=== PATIENT | female | born 1970 | race Caucasian/White ===

== ENCOUNTER 2019-04-26 07:44 | Day surgery (SDC) | payer MEDICAID, OTHER ==
[2019-04-25 11:10] LABS: BLOOD UREA NITROGEN,BUN 14 mg/dL (7.0-18.0); CARBON DIOXIDE,CO2 24.8 mmol/L (21.0-32.0); CHLORIDE,CL 106 mmol/L (98-107); GLUCOSE RANDOM 100 mg/dL (74-106); POTASSIUM,K 4.5 mmol/L (3.5-5.1); SODIUM,NA 141 mmol/L (136-145)
[~2019-04-26 07:44] MED LIST: Ketorolac 30 MG/ML SDV ONE; Lidocaine 2% 5 ML SDV ONE; Midazolam 1 MG/ML 2 ML SDV ONE; Ondansetron 4 MG/2 ML SDV ONE; Propofol 200 MG/20 ML SDV ONE; Rocuronium 100 MG/10 ML Syringe ONE; Sodium Chloride 0.9% 10 ML SDV IV PRN; Sodium Chloride 0.9% 10 ML Syringe FLUSH PRN; Sodium Chloride 0.9% 2.5 ML Syringe FLUSH PRN; ceFAZolin 2 GM in Premix Bag 1 BAG IV ONE; diphenhydrAMINE 50 MG/ML SDV ONE; fentaNYL 250 MCG/5 ML SDV ONE
[2019-04-26] MEDS ORDERED: Fluorescein 5 ML Vial ONE (07:58)
[2019-04-26] MEDS: Lactated Ringers 1,000 ML IV SCH ×3 (08:00→20:30)
[2019-04-26] MEDS ORDERED: Scopolamine 1.5 MG Transdermal Patch TRDERM PRN (08:24)
--- NOTE | 2019-04-26 08:24 | PCM.PREANE ---
Preanesthetic Assessment - Anesthesia/Transfusion/Family Hx Anesthesia History: Prior Anesthesia Without Reaction Family History of Anesthesia Reaction: No Transfusion History: No Prior Transfusion(s) - Review of Systems General: No Symptoms Pulmonary: No Symptoms Cardiovascular: No Symptoms Gastrointestinal: No Symptoms Neurological: Difficulty Walking (post crani for aneurysm) Other: Reports: Depression, Anxiety - Physical Assessment NPO Status Date: 04/26/19 NPO Status Time: 06:00 Vital Signs: Last Vital Signs Temp 96.4 F 04/26/19 07:58 Pulse 86 04/26/19 07:58 Resp 20 04/26/19 07:58 BP 115/77 04/26/19 07:58 Pulse Ox 97 04/26/19 07:58 Height: 5 ft 7 in Weight: 81.647 kg ASA Class: 3 Mental Status: Alert & Oriented x3 Airway Class: Mallampati = 2 Dentition: Reports: Normal Dentition, Missing Tooth/Teeth ROM/Head Extension: Full Lungs: Clear to Auscultation, Normal Respiratory Effort Cardiovascular: Regular Rate, Regular Rhythm - Lab Values: Laboratory Last Values WBC 5.19 K/uL (4.0-11.0) 04/25/19 10:18 RBC 5.03 M/uL (4.30-5.90) 04/25/19 10:18 Hgb 9.6 g/dL (12.0-16.0) L 04/25/19 10:18 Hct 34.2 % (36.0-46.0) L 04/25/19 10:18 MCV 68.0 fL (80.0-98.0) L 04/25/19 10:18 MCH 19.1 pg (27.0-32.0) L 04/25/19 10:18 MCHC 28.1 g/dL (31.0-37.0) L 04/25/19 10:18 RDW Std Deviation 54.9 fl (28.0-62.0) 04/25/19 10:18 RDW Coeff of West 22 % (11.0-15.0) H 04/25/19 10:18 Plt Count 420 K/uL (150-400) H 04/25/19 10:18 MPV 8.70 fL (7.40-12.00) 04/25/19 10:18 Nucleated RBC % 0.0 /100WBC 04/25/19 10:18 Nucleated RBCs # 0 K/uL 04/25/19 10:18 Sodium 141 mmol/L (136-145) 04/25/19 10:18 Potassium 4.5 mmol/L (3.5-5.1) 04/25/19 10:18 Chloride 106 mmol/L (98-107) 04/25/19 10:18 Carbon Dioxide 24.8 mmol/L (21.0-32.0) 04/25/19 10:18 BUN 14 mg/dL (7.0-18.0) 04/25/19 10:18 Creatinine 0.6 mg/dL (0.6-1.0) 04/25/19 10:18 Est Cr Clr Drug Dosing 109.08 mL/min 04/25/19 10:18 Estimated GFR (MDRD) > 60.0 ml/min 04/25/19 10:18 Glucose 100 mg/dL (74-106) 04/25/19 10:18 Calcium 8.8 mg/dL (8.5-10.1) 04/25/19 10:18 HCG, Qual NEGATIVE (NEG) 04/25/19 10:18 Blood Type A POSITIVE 04/25/19 10:18 Antibody Screen NEGATIVE 04/25/19 10:18 - Allergies Allergies/Adverse Reactions: Allergies Allergy/AdvReac Type Severity Reaction Status Date / Time codeine Allergy Nausea and Verified 04/24/19 09:08 Vomiting doxycycline Allergy Nausea and Verified 04/24/19 09:08 Vomiting peanut Allergy Anaphylactic Verified 04/24/19 09:08 Shock - Blood Blood Available: No - Anesthesia Plan Pre-Op Medication Ordered: Other (scop) - Acknowledgements Anesthesia Type Planned: General Anesthesia Pt an Appropriate Candidate for the Planned Anesthesia: Yes Alternatives and Risks of Anesthesia Discussed w Pt/Guardian: Yes Pt/Guardian Understands and Agrees with Anesthesia Plan: Yes PreAnesthesia Questionnaire HEENT History: Reports: None Cardiovascular History: Reports: None Respiratory History: Reports: None Gastrointestinal History: Reports: Other (See Below) Other Gastrointestinal History: hx gastric ulcers Genitourinary History: Reports: None TRAPPER ANIMAL History: Reports: Dysfunctional Uterine Bleeding, Musculoskeletal History: Reports: Fracture Other Musculoskeletal History: hx fx hand and neck Neurological History: Reports: Cerebral Aneurysms, Concussion, CVA, Migraines Other Neuro History: 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 Psychiatric History: Reports: Anxiety, Depression, PTSD Endocrine/Metabolic History: Reports: Hypothyroidism Hematologic History: Reports: Anemia Immunologic History: Reports: None Oncologic (Cancer) History: Reports: None Dermatologic History: Reports: None - Infectious Disease History Infectious Disease History: Reports: None - Past Surgical History Head Surgeries/Procedures: Reports: Craniotomy HEENT Surgical History: Reports: Oral Surgery Cardiovascular Surgical History: Reports: None Respiratory Surgical History: Reports: None GI Surgical History: Reports: None Female Surgical History: Reports: D&C, Tubal Ligation Other Female Surgeries/Procedures: hx hysteroscopy with D&C Endocrine Surgical History: Reports: None Neurological Surgical History: Reports: Other (See Below) Other Neurological Surgeries/Procedures: Craniotomy procedure in May,. Musculoskeletal Surgical History: Reports: None Oncologic Surgical History: Reports: None Dermatological Surgical History: Reports: None - SUBSTANCE USE Smoking Status *Q: Current Every Day Smoker Tobacco Use Within Last Twelve Months: Cigarettes Recreational Drug Use History: Yes Recreational Drug Type: Reports: Marijuana/Hashish - HOME MEDS Home Medications: Home Meds levETIRAcetam [Keppra] 750 mg PO BID 06/04/18 [History] Butalbit/Acetamin/Caff/Codeine [Moloxg-Rscxrfefhyq-Tmkn-Codein] 1 tab PO ASDIRECTED PRN 04/24/19 [History] Cyanocobalamin (Vitamin B12) [Vitamin B12] 1,000 mcg PO DAILY 04/24/19 [History] Levothyroxine [Synthroid] 100 mcg PO DAILY 04/24/19 [History] - CURRENT (IN HOUSE) MEDS Current Meds: Current Medications Lactated Ringer's (Ringers, Lactated) 1,000 mls @ 125 mls/hr IV ASDIRECTED [facility] Last Admin: 04/26/19 08:00 Dose: 125 mls/hr Sodium Chloride (Saline Flush) 10 ml FLUSH ASDIRECTED PRN PRN Reason: Keep Vein Open Sodium Chloride (Saline Flush) 2.5 ml FLUSH ASDIRECTED PRN PRN Reason: Keep Vein Open Sodium Chloride (Normal Saline) 10 ml IV ASDIRECTED PRN PRN Reason: IV Use Discontinued Medications Diphenhydramine HCl (Benadryl) Confirm Administered Dose 50 mg .ROUTE .STK-MED ONE Stop: 04/26/19 07:14 Fentanyl (Sublimaze) Confirm Administered Dose 250 mcg .ROUTE .STK-MED ONE Stop: 04/26/19 07:14 Fluorescein Sodium (Ak-Fluor) Confirm Administered Dose 5 ml .ROUTE .STK-MED ONE Stop: 04/26/19 07:59 Cefazolin Sodium/Dextrose 2 gm (/ Premix) 50 mls @ 100 mls/hr IV ONETIME ONE Stop: 04/25/19 09:07 Ketorolac Tromethamine (Toradol) Confirm Administered Dose 30 mg .ROUTE .STK- MED ONE Stop: 04/26/19 07:14 Lidocaine (Xylocaine-Mpf 2%) Confirm Administered Dose 5 ml .ROUTE .STK-MED ONE Stop: 04/26/19 07:14 Midazolam HCl (Versed 1 Mg/Ml) Confirm Administered Dose 2 mg .ROUTE .STK-MED ONE Stop: 04/26/19 07:16 Ondansetron HCl (Zofran) Confirm Administered Dose 4 mg .ROUTE .STK-MED ONE Stop: 04/26/19 07:14 Propofol (Diprivan 20 Ml) Confirm Administered Dose 200 mg .ROUTE .STK-MED ONE Stop: 04/26/19 07:14 Rocuronium [place] (Zemuron) Confirm Administered Dose 100 mg .ROUTE .STK-MED ONE Stop: 04/26/19 07:14
[2019-04-26] MEDS ORDERED: Neostigmine Methylsulfate 1 MG/ML 5 ML Syringe ONE (10:04)
[2019-04-26] MEDS ORDERED: Glycopyrrolate 0.2 MG/ML SDV ONE (10:04)
[2019-04-26] MEDS ORDERED: HYDROmorphone 2 MG/ML Syringe ONE (10:21)
[2019-04-26] MEDS ORDERED: Phenylephrine/Normal Saline 100 MCG/ML 10 ML Syringe ONE (10:23)
[2019-04-26] MEDS ORDERED: fentaNYL 100 MCG/2 ML SDV IVPUSH PRN (10:37)
[2019-04-26] MEDS ORDERED: Octyl 2-Cyanoacrylate 1 Tube ONE (11:25)
[2019-04-26] MEDS ORDERED: Morphine 4 MG/ML Syringe IVPUSH PRN (11:27)
[2019-04-26] MEDS ORDERED: Acetaminophen/oxyCODONE 325-5 MG Tab PO PRN ×2 (11:27)
[2019-04-26] MEDS ORDERED: Promethazine 25 MG/ML SDV IM PRN (11:27)
[2019-04-26] MEDS ORDERED: Ketorolac 30 MG/ML SDV IVPUSH ONE (11:27)
[2019-04-26] MEDS ORDERED: Ondansetron 4 MG/2 ML SDV IVPUSH PRN (11:27)
--- NOTE | 2019-04-26 11:31 | PCM.OPNOTE ---
- General Post-Op/Procedure Note Date of Surgery/Procedure: 04/26/19 Operative Procedure(s): TLH,BSO and cysto Post-Op Diagnosis: Same Anesthesia Technique: General ET Tube Primary Surgeon: Nas Harper EBL in mLs: 100 Complications: None Condition: Good
[2019-04-26] MEDS ORDERED: Naloxone 0.4 MG/ML Syringe ONE (11:34)
--- NOTE | 2019-04-26 13:15 | OR ---
SURGEON: Nas Harper MD DATE OF PROCEDURE: PREOPERATIVE DIAGNOSES: Menometrorrhagia, anemia. POSTOPERATIVE DIAGNOSES: Menometrorrhagia, anemia. OPERATIONS PERFORMED: Total laparoscopic hysterectomy, laparoscopic bilateral salpingo-oophorectomy, cystoscopy, and examination under anesthesia. PRIMARY SURGEON: Nas Harper MD. LOADING MACHINE OPERATOR HELPER: Brigida Garcias. ANESTHESIA: General endotracheal intubation. ESTIMATED BLOOD LOSS: 100 mL. COMPLICATIONS: None. FINDINGS: Uterus is about 8-week size. Both ovaries are unremarkable. INDICATION FOR SURGERY: [place] referred to the admit note. DESCRIPTION OF PROCEDURE: After adequate level of anesthesia, the patient was placed in lithotomy position and examination under anesthesia was performed and it was deemed it was the better route to do the hysterectomy laparoscopically, so the patient prepped and draped in sterile fashion as usual. Raymond catheter placed in the bladder and the colpotomizer and manipulator were placed in the uterus for manipulation. The operation shifted abdominally. Stab wound done beneath the umbilicus. The Veress needle was placed in the peritoneal cavity and that cavity insufflated with 3.5 L of carbon dioxide, and utilizing the Visiport technique, the peritoneal cavity was entered with a 5 mm trocar infraumbilically. Once was that anchored and making sure we were in the appropriate space, then 5/10 trocar placed in the left iliac fossa and 5 mm trocar in the right iliac fossa. The operation was started by then identifying the landmark of the pelvis and the anatomy, and then using the Marc Harmonic scalpel, the superior pedicle on both sides was coagulated and transected. The tubes and ovaries were included with the specimen. The round ligament done in the same way and then the anterior leaf of the broad ligament dissected downward medially pushing the bladder completely away from the operative field and the uterine vessel coagulated and transected with the Marc Harmonic scalpel from both sides. Once was that done, then the vaginal cuff was entered with using the Lumiyare manipulator in a circular manner detaching the cervix from its attachment to the vagina. Cervix, uterus, and both the ovaries removed vaginally and pneumoperitoneum re-established by placing vaginal pack. We proceeded to close the vaginal cuff laparoscopically with 2-0 PDS interrupted. There was an area of oozing from the left pelvic sidewall. Judicial use of Jaswant bipolar electrocautery was performed and the bleeding stopped. After inspection and thorough irrigation and ascertaining there was no bleeding, the abdomen was decompressed. While we were closing the vaginal cuff, we asked the Anesthesia people to give the patient fluorescein and then cystoscopy was performed. The bladder was intact. Both ureteric orifices seen with the dye coming out from both of them. Thus, the patency of both the ureters verified. Satisfied with this finding, the instrument and hardware were retrieved from the abdomen and the vagina. The multiple laparoscopic incisions were closed in layer. Instrument and sponge count was correct. The patient tolerated the procedure well, went to recovery room in stable general condition. FANY / KAVIN /[id number]
--- NOTE | 2019-04-26 14:30 | PCM.POSTAN ---
POST ANESTHESIA ASSESSMENT - MENTAL STATUS Mental Status: Alert, Oriented - VITAL SIGNS Vital Signs: Last Vital Signs Temp 97.3 F 04/26/19 14:00 Pulse 66 04/26/19 14:00 Resp 16 04/26/19 14:00 BP 93/54 L 04/26/19 14:00 Pulse Ox 100 04/26/19 14:00 - RESPIRATORY Respiratory Status: Respiratory Rate WNL, Airway Patent, O2 Saturation Stable - CARDIOVASCULAR CV Status: Pulse Rate WNL, Blood Pressure Stable - GASTROINTESTINAL GI Status: No Symptoms - POST OP HYDRATION Hydration Status: Adequate & Stable
[2019-04-26] MEDS: Ketorolac 30 MG/ML SDV IVPUSH PRN ×2 (17:43→23:42)
[2019-04-26] MEDS: levETIRAcetam 500 MG Tab PO SCH (20:30)
[2019-04-27] MEDS ORDERED: Sodium Chloride 0.9% 500 ML IV SCH (05:00)
[2019-04-27] MEDS: Lactated Ringers 1,000 ML IV SCH (05:49)
[2019-04-27 06:57] LABS: BLOOD UREA NITROGEN,BUN 7 mg/dL (7.0-18.0); CARBON DIOXIDE,CO2 26.4 mmol/L (21.0-32.0); CHLORIDE,CL 110 mmol/L (98-107); GLUCOSE RANDOM 92 mg/dL (74-106); POTASSIUM,K 3.6 mmol/L (3.5-5.1); SODIUM,NA 143 mmol/L (136-145)
[2019-04-27] MEDS ORDERED: Levothyroxine 100 MCG Tab PO SCH (07:30)
[2019-04-27] MEDS: levETIRAcetam 500 MG Tab PO SCH (08:08)
[2019-04-27] MEDS: Ketorolac 30 MG/ML SDV IVPUSH PRN (08:09)
[2019-04-27 08:17] VITALS: BP 91/54; PULSE 73
--- NOTE | 2019-04-27 09:00 | PCM.SURGPN ---
- General Info Date of Service: 04/27/19 POD#: 1 Functional Status: Reports: Pain Controlled - Review of Systems General: Reports: No Symptoms HEENT: Reports: No Symptoms Pulmonary: Reports: No Symptoms Cardiovascular: Reports: No Symptoms Gastrointestinal: Reports: No Symptoms Genitourinary: Reports: No Symptoms Musculoskeletal: Reports: No Symptoms Skin: Reports: No Symptoms Neurological: Reports: No Symptoms Psychiatric: Reports: No Symptoms - Patient Data Vitals - Most Recent: Last Vital Signs Temp 36.6 C 04/27/19 07:35 Pulse 73 04/27/19 07:35 Resp 17 04/27/19 07:35 BP 91/54 L 04/27/19 07:35 Pulse Ox 97 04/27/19 07:35 Weight - Most Recent: 81.647 kg I&O - Last 24 Hours: Intake & Output 04/26/19 04/27/19 04/27/19 22:59 06:59 14:59 Intake Total 940 2835 Output Total 300 1100 Balance 640 1735 Lab Results Last 24 Hrs: Laboratory Results - last 24 hr 04/27/19 04/27/19 Range/Units 06:23 06:23 WBC 5.29 (4.0-11.0) K/uL RBC 3.86 L (4.30-5.90) M/uL Hgb 7.4 L (12.0-16.0) g/dL Hct 26.6 L (36.0-46.0) % MCV 68.9 L (80.0-98.0) fL MCH 19.2 L (27.0-32.0) pg MCHC 27.8 L (31.0-37.0) g/dL RDW Std Deviation 55.0 (28.0-62.0) fl RDW Coeff of West 22 H (11.0-15.0) % Plt Count 271 (150-400) K/uL MPV 8.10 (7.40-12.00) fL Neut % (Auto) 54.6 (48.0-80.0) % Lymph % (Auto) 34.2 (16.0-40.0) % [place] % (Auto) 9.1 (0.0-15.0) % Eos % (Auto) 1.9 (0.0-7.0) % Baso % (Auto) 0.2 (0.0-1.5) % Neut # (Auto) 2.9 (1.4-5.7) K/uL Lymph # (Auto) 1.8 (0.6-2.4) K/uL [place] # (Auto) 0.5 (0.0-0.8) K/uL Eos # (Auto) 0.1 (0.0-0.7) K/uL Baso # (Auto) 0.0 (0.0-0.1) K/uL Nucleated RBC % 0.0 /100WBC Nucleated RBCs # 0 K/uL Sodium 143 (136-145) mmol/L Potassium 3.6 (3.5-5.1) mmol/L Chloride 110 H (98-107) mmol/L Carbon Dioxide 26.4 (21.0-32.0) mmol/L BUN 7 (7.0-18.0) mg/dL Creatinine 0.7 (0.6-1.0) mg/dL Est Cr Clr Drug Dosing 93.50 mL/min Estimated GFR (MDRD) > 60.0 ml/min Glucose 92 (74-106) mg/dL Calcium 7.7 L (8.5-10.1) mg/dL Med Orders - Current: Current Medications Fentanyl (Sublimaze) 50 mcg IVPUSH Q5M PRN PRN Reason: Pain (severe 7-10) Stop: 04/27/19 10:38 Lactated Ringer's (Ringers, Lactated) 1,000 mls @ 125 mls/hr IV ASDIRECTED [facility] Last Admin: 04/27/19 05:49 Dose: 125 mls/hr Sodium Chloride (Normal Saline) 500 mls @ 999 mls/hr IV BOLUS [facility] Last Admin: 04/27/19 05:10 Dose: 999 mls/hr Ketorolac Tromethamine (Toradol) 30 mg IVPUSH Q6H PRN PRN Reason: Pain (severe 7-10) Stop: 05/01/19 11:27 Last Admin: 04/27/19 08:09 Dose: 30 mg Levetiracetam (Keppra) 750 mg PO BID [facility] Last Admin: 04/27/19 08:08 Dose: 750 mg Levothyroxine Sodium (Synthroid) 100 mcg PO ACBREAKFAST [facility] Last Admin: 04/27/19 08:07 Dose: 100 mcg Morphine Sulfate (Morphine) 4 mg IVPUSH Q2H PRN PRN Reason: Pain (severe 7-10) Ondansetron HCl (Zofran) 4 mg IVPUSH Q6H PRN PRN Reason: Nausea/Vomiting Last Admin: 04/26/19 17:40 Dose: 4 mg Oxycodone/Acetaminophen (Percocet 325-5 Mg) 1 tab PO Q4H PRN PRN Reason: Pain (moderate 4-6) Last Admin: 04/26/19 20:31 Dose: 1 tab Oxycodone/Acetaminophen (Percocet 325-5 Mg) 2 tab PO Q4H PRN PRN Reason: Pain (moderate 4-6) Last Admin: 04/27/19 02:33 Dose: 2 tab Promethazine HCl (Phenergan) 25 mg IM Q6H PRN PRN Reason: Nausea/Vomiting Scopolamine (Transderm-Scop) 1.5 mg TRDERM Q72H PRN PRN Reason: Nausea/Vomiting Last Admin: 04/26/19 08:35 Dose: 1.5 mg Sodium Chloride (Saline Flush) 10 ml FLUSH ASDIRECTED PRN PRN Reason: Keep Vein Open Sodium Chloride (Saline Flush) 2.5 ml FLUSH ASDIRECTED PRN PRN Reason: Keep Vein Open Sodium Chloride (Normal Saline) 10 ml IV ASDIRECTED PRN PRN Reason: IV Use Discontinued Medications Diphenhydramine HCl (Benadryl) Confirm Administered Dose 50 mg .ROUTE .STK-MED ONE Stop: 04/26/19 07:14 Fentanyl (Sublimaze) Confirm Administered Dose 250 mcg .ROUTE .STK-MED ONE Stop: 04/26/19 07:14 Fluorescein Sodium (Ak-Fluor) Confirm Administered Dose 5 ml .ROUTE .STK-MED ONE Stop: 04/26/19 07:59 Glycopyrrolate (Robinul) Confirm Administered Dose 0.4 mg .ROUTE .STK-MED ONE Stop: 04/26/19 10:05 Hydromorphone HCl (Dilaudid) Confirm Administered Dose 2 mg .ROUTE .STK-MED ONE Stop: 04/26/19 10:22 Cefazolin Sodium/Dextrose 2 gm (/ Premix) 50 mls @ 100 mls/hr IV ONETIME ONE Stop: 04/25/19 09:07 Last Admin: 04/26/19 12:30 Dose: Not Given Ketorolac Tromethamine (Toradol) Confirm Administered Dose 30 mg .ROUTE .STK- MED ONE Stop: 04/26/19 07:14 Ketorolac Tromethamine (Toradol) 30 mg IVPUSH ONETIME ONE Stop: 04/26/19 11:28 Last Admin: 04/26/19 11:37 Dose: 30 mg Lidocaine (Xylocaine-Mpf 2%) Confirm Administered Dose 5 ml .ROUTE .STK-MED ONE Stop: 04/26/19 07:14 Midazolam HCl (Versed 1 Mg/Ml) Confirm Administered Dose 2 mg .ROUTE .STK-MED ONE Stop: 04/26/19 07:16 Naloxone HCl (Narcan) Confirm Administered Dose 0.4 mg .ROUTE .STK-MED ONE Stop: 04/26/19 11:35 Neostigmine Methylsulfate (Neostigmine) Confirm Administered Dose 5 mg .ROUTE .STK-MED ONE Stop: 04/26/19 10:05 Octyl Cyanoacrylate (Dermabond Advance) Confirm Administered Dose 1 applic .ROUTE .STK-MED ONE Stop: 04/26/19 11:26 Ondansetron HCl (Zofran) Confirm Administered Dose 4 mg .ROUTE .STK-MED ONE Stop: 04/26/19 07:14 Phenylephrine HCl (Phenylephrine In Ns 100 Mcg/Ml) Confirm Administered Dose 1 mg .ROUTE .STK-MED ONE Stop: 04/26/19 10:24 Propofol (Diprivan 20 Ml) Confirm Administered Dose 200 mg .ROUTE .STK-MED ONE Stop: 04/26/19 07:14 Rocuronium [place] (Zemuron) Confirm Administered Dose 100 mg .ROUTE .STK-MED ONE Stop: 04/26/19 07:14 - Exam Wound/Incisions: Healing Well General: Alert, Oriented HEENT: Pupils Equal Neck: Supple Lungs: Clear to Auscultation, Normal Respiratory Effort Cardiovascular: Regular Rate, Regular Rhythm GI/Abdominal Exam: Normal Bowel Sounds, Soft, Non-Tender, No Organomegaly, No Distention, No Abnormal Bruit, No Mass, Pelvis Stable Extremities: Normal Inspection, Normal Range of Motion, Non-Tender, No Pedal Edema, Normal Capillary Refill Skin: Warm, Dry, Intact Neurological: No New Focal Deficit Psy/Mental Status: Alert, Normal Affect, Normal Mood - Problem List Review Problem List Initiated/Reviewed/Updated: Yes - My Orders Last 24 Hours: Active Orders 24 hr Category Date Time Status Admission Status [Patient Status] [ADT] Routine ADT 04/26/19 11:27 Active Bladder Scan [RC] ONETIME Care 04/26/19 19:25 Active Notify Provider Vital Signs [RC] ASDIRECTED Care 04/26/19 11:27 Active Oxygen Therapy [RC] ASDIRECTED Care 04/26/19 11:27 Active RT Incentive Spirometry [RC] Q2HWA Care 04/26/19 11:27 Active Up With Assistance [RC] PER UNIT ROUTINE Care 04/26/19 11:27 Active Up ad Mary [RC] PER UNIT ROUTINE Care 04/26/19 11:27 Active Acetaminophen/oxyCODONE [Percocet 325-5 MG] Med 04/26/19 11:27 Active 1 tab PO Q4H PRN Acetaminophen/oxyCODONE [Percocet 325-5 MG] Med 04/26/19 11:27 Active 2 tab PO Q4H PRN Ketorolac [Toradol] Med 04/26/19 11:27 Active 30 mg IVPUSH Q6H PRN Levothyroxine [Synthroid] Med 04/27/19 07:30 Active 100 mcg PO ACBREAKFAST Morphine Med 04/26/19 11:27 Active 4 mg IVPUSH Q2H PRN Ondansetron [Zofran] Med 04/26/19 11:27 Active 4 mg IVPUSH Q6H PRN Promethazine [Phenergan] Med 04/26/19 11:27 Active 25 mg IM Q6H PRN Scopolamine [Transderm-Scop] Med 04/26/19 08:24 Active 1.5 mg TRDERM Q72H PRN Sodium Chloride 0.9% [Normal Saline] 500 ml Med 04/27/19 05:00 Active IV BOLUS fentaNYL [Sublimaze] Med 04/26/19 10:37 Active 50 mcg IVPUSH Q5M PRN levETIRAcetam [Keppra] Med 04/26/19 21:00 Active 750 mg PO BID Resuscitation Status Routine Resus Stat 04/26/19 11:27 Ordered Medication Orders Fentanyl (Sublimaze) 50 mcg IVPUSH Q5M PRN PRN Reason: Pain (severe 7-10) Stop: 04/27/19 10:38 Lactated Ringer's (Ringers, Lactated) 1,000 mls @ 125 mls/hr IV ASDIRECTED [facility] Last Admin: 04/27/19 05:49 Dose: 125 mls/hr Infusion: 04/27/19 04:30 Dose: 125 mls/hr Admin: 04/26/19 20:30 Dose: 125 mls/hr Infusion: 04/26/19 20:30 Dose: 125 mls/hr Admin: 04/26/19 12:30 Dose: 125 mls/hr Infusion: 04/26/19 12:30 Dose: 125 mls/hr Admin: 04/26/19 08:00 Dose: 125 mls/hr Sodium Chloride (Normal Saline) 500 mls @ 999 mls/hr IV BOLUS [facility] Last Admin: 04/27/19 05:10 Dose: 999 mls/hr Ketorolac Tromethamine (Toradol) 30 mg IVPUSH Q6H PRN PRN Reason: Pain (severe 7-10) Stop: 05/01/19 11:27 Last Admin: 04/27/19 08:09 Dose: 30 mg Admin: 04/26/19 23:42 Dose: 30 mg Admin: 04/26/19 17:43 Dose: 30 mg Levetiracetam (Keppra) 750 mg PO BID [facility] Last Admin: 04/27/19 08:08 Dose: 750 mg Admin: 04/26/19 20:30 Dose: 750 mg Levothyroxine Sodium (Synthroid) 100 mcg PO ACBREAKFAST [facility] Last Admin: 04/27/19 08:07 Dose: 100 mcg Morphine Sulfate (Morphine) 4 mg IVPUSH Q2H PRN PRN Reason: Pain (severe 7-10) Ondansetron HCl (Zofran) 4 mg IVPUSH Q6H PRN PRN Reason: Nausea/Vomiting Last Admin: 04/26/19 17:40 Dose: 4 mg Oxycodone/Acetaminophen (Percocet 325-5 Mg) 1 tab PO Q4H PRN PRN Reason: Pain (moderate 4-6) Last Admin: 04/26/19 20:31 Dose: 1 tab Oxycodone/Acetaminophen (Percocet 325-5 Mg) 2 tab PO Q4H PRN PRN Reason: Pain (moderate 4-6) Last Admin: 04/27/19 02:33 Dose: 2 tab Promethazine HCl (Phenergan) 25 mg IM Q6H PRN PRN Reason: Nausea/Vomiting Scopolamine (Transderm-Scop) 1.5 mg TRDERM Q72H PRN PRN Reason: Nausea/Vomiting Last Admin: 04/26/19 08:35 Dose: 1.5 mg Sodium Chloride (Saline Flush) 10 ml FLUSH ASDIRECTED PRN PRN Reason: Keep Vein Open Sodium Chloride (Saline Flush) 2.5 ml FLUSH ASDIRECTED PRN PRN Reason: Keep Vein Open Sodium Chloride (Normal Saline) 10 ml IV ASDIRECTED PRN PRN Reason: IV Use - Assessment Assessment (Free Text/Narrative):: status post total laparoscopic hysterectomy vital signs stable patient on bloodstream minimum vaginal bleeding voiding without any problem on regular diet tolerated very well and her pain is under control. - Plan Plan (Free Text/Narrative):: I am sending the patient today home that is no restriction on her diet a prescription for Narco 5 mg by mouth every 4 hours when necessary for postoperative pain the patient given the postvasectomy instruction and she is to come to the office for a postoperatxamination in 1 week
== END 2019-04-27 10:15 | disposition home or self-care (01) ==
LOC: MW.SDS 07:44 → MW.MS 11:15 → MW.SDS 04-27 10:15
PROVIDERS: ATTEND Obstetrics & Gynecology
DX: N84.1 Polyp of cervix uteri (principal); D64.9 Anemia, unspecified; D27.0 Benign neoplasm of right ovary; R23.4 Changes in skin texture; N88.8 Other specified noninflammatory disorders of cervix uteri; N83.02 Follicular cyst of left ovary; E03.9 Hypothyroidism, unspecified; F17.210 Nicotine dependence, cigarettes, uncomplicated; Z98.51 Tubal ligation status; Z79.899 Other long term (current) drug therapy; Z88.8 Allergy status to other drugs, medicaments and biological substances; Z91.010 Allergy to peanuts; Z88.1 Allergy status to other antibiotic agents
CPT/HCPCS: 36415; 58571; 80048; 84703; 85025; 85027; 86850; 86900; 86901; A9270; J1170; J1200; J1885; J2001; J2250; J2370; J2405; J2704; J3010; J3490; J7040; J7120

== ENCOUNTER 2019-07-25 11:30 | Emergency (ER) | payer MEDICAID, OTHER ==
--- NOTE | 2019-07-25 12:08 | EDM.PDOC ---
ED HPI GENERAL MEDICAL PROBLEM - General Chief Complaint: Neurological Problem Stated Complaint: numbness Time Seen by Provider: 07/25/19 11:50 Source of Information: Reports: Patient - History of Present Illness INITIAL COMMENTS - FREE TEXT/NARRATIVE: The patient presents to the ER for numbness and just not feeling well. The patient has a history of previous ruptured cerebral aneurysms along with intracranial stents and a craniotomy. The patient states that ever since then, she now has chronic headaches usually every 2 to 3 days she gets a migraine- like sensations with photophobia and some nausea. She is chronically sensitive to light now. She takes Fioricet for her headaches. After her last aneurysm the patient had some numbness and tingling to her face and hand but those eventually mostly resolved. However, the patient states that over the past couple of weeks she has had some gait imbalance that is intermittent and is just not felt well. Patient states 5 days ago on Tuesday, she woke up suddenly with a severe headache, she felt like her entire body was numb and tingly and she took a Fioricet tablet and tried not to freak out as she describes it and laid back down. The patient states that all of her symptoms have gradually improved and today she has a headache but it is consistent with all of her other headaches and nothing has changed with it. The numbness that she was experiencing 5 days ago is also improved. No fevers or chills, no visual deficits but sometimes she seems to have double vision but this is inconsistent. No speech slurring, no weakness, she just does not feel well. She was talking with some friends and her doctor and they told her that she should go to the ER. Headache Pain Score (Numeric/FACES): 2 - Related Data Allergies Allergy/AdvReac Type Severity Reaction Status Date / Time codeine Allergy Nausea and Verified 04/26/19 16:01 Vomiting doxycycline Allergy Nausea and Verified 04/26/19 16:01 Vomiting peanut Allergy Anaphylactic Verified 04/26/19 16:01 Shock Home Meds: Home Meds levETIRAcetam [Keppra] 750 mg PO BID 06/04/18 [History] Butalbit/Acetamin/Caff/Codeine [Ufcaso-Yzsfpwdedrt-Lywt-Codein] 1 tab PO ASDIRECTED PRN 04/24/19 [History] Cyanocobalamin (Vitamin B12) [Vitamin B12] 1,000 mcg PO DAILY 04/24/19 [History] Levothyroxine [Synthroid] 100 mcg PO DAILY 04/24/19 [History] Past Medical History HEENT History: Reports: None Cardiovascular History: Reports: None Respiratory History: Reports: None Gastrointestinal History: Reports: Other (See Below) Other Gastrointestinal History: hx gastric ulcers Genitourinary History: Reports: None 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: Dysfunctional Uterine Bleeding, Musculoskeletal History: Reports: Fracture Other Musculoskeletal History: hx fx hand and neck Neurological History: Reports: Cerebral Aneurysms, Concussion, CVA, Migraines Other Neuro History: 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 - Past Surgical History Head Surgeries/Procedures: Reports: Craniotomy HEENT Surgical History: Reports: Oral Surgery Cardiovascular Surgical History: Reports: None Respiratory Surgical History: Reports: None GI Surgical History: Reports: None Female Surgical History: Reports: D&C, Tubal Ligation Other Female Surgeries/Procedures: hx hysteroscopy with D&C Endocrine Surgical History: Reports: None Neurological Surgical History: Reports: Other (See Below) Other Neurological Surgeries/Procedures: Craniotomy procedure in May,. Musculoskeletal Surgical History: Reports: None Oncologic Surgical History: Reports: None Dermatological Surgical History: Reports: None Social & Family History - Family History Family Medical History: Noncontributory - Caffeine Use Caffeine Use: Reports: Soda ED ROS GENERAL - Review of Systems Review Of Systems: See Below Free Text/Narrative/Comment: Positive for headache, positive for photophobia, positive for facial tingling, positive for intermittent double vision, positive for malaise, negative for weakness, negative for current nausea or vomiting, all other Positives and pertinent negatives as per HPI. All other pertinent systems were reviewed and are negative ED EXAM, NEURO - Physical Exam Exam: See Below Text/Narrative:: Constitutional: No acute distress, Non-toxic appearance, mildly anxious HEENT.: Normocephalic, PERRL, EOMI, External ears are atraumatic, nares are patent without epistaxis Neck: Normal range of motion, Trachea Midline, No stridor Respiratory.: No respiratory distress, No tachypnea, Lungs Clear to Auscultation bilaterally without wheezes, rales, or rhonchi Cardiovascular.: Regular rate and Rhythm without murmurs, rubs, or gallops, good peripheral perfusion GI: Deferred Genital Urinary: Deferred Musculoskeletal: Good range of motion. All 4 extremities present and atraumatic , no edema Back: Full Range of Motion Skin: Warm, Dry, Color is ethnicity appropriate, No acute rash. Lymphatic: No lymphadenopathy noted Neurological: Alert, Awake and oriented x 3, cranial nerves grossly intact, normal gait, cerebellar function tests intact, no focal deficits noted appreciate, GCS 15 Psych: Pleasant and cooperative, mildly anxious Course - Vital Signs Text/Narrative:: I had a long talk with the patient as she does have a very bad history with 3 ruptured cerebral aneurysms. However, given that the patient's current headache is consistent with all of her other previous headaches and the only thing that is changed currently is that she is having some facial numbness which started after her headache 5 days ago, with completely flawless neurological exam, even if the patient did have a ruptured cerebral aneurysm from 5 days ago and has survived this long, no one will perform any emergency intervention. Furthermore, CT scans of the head this far out have poor sensitivity. Given the entire clinical scenario I do not feel any emergency imaging is warranted. The patient states her understanding and is comfortable with no work-up at this time. However, the patient will be provided with a neurologist as follow-up in this area is difficult. We will give her a few options. Last Recorded V/S: Last Vital Signs Temp 36.2 C 07/25/19 11:44 Pulse 85 07/25/19 11:44 Resp 18 07/25/19 11:44 BP 149/82 H 07/25/19 11:44 Pulse Ox 98 07/25/19 11:44 Departure - Departure Time of Disposition: 12:13 Disposition: Home, Self-Care 01 Clinical Impression: Cephalgia - Discharge Information Instructions: General Headache Without Cause Referrals: PCP,Unobtain [Primary Care Provider] - Additional Instructions: Follow-up with any of the neurologists that have been provided to you. Sepsis Event Note - Evaluation Sepsis Screening Result: No Definite Risk - Focused Exam Vital Signs: Vital Signs Temp Pulse Resp BP Pulse Ox 07/25/19 11:44 36.2 C 85 18 149/82 H 98 Date Exam was Performed: 07/25/19 Time Exam was Performed: 12:02
[2019-07-25 12:33] VITALS: BP 111/77; PULSE 76
== END 2019-07-25 12:34 | disposition home or self-care (01) ==
LOC: MW.ED 11:30
DX: R51 Headache (principal); F41.9 Anxiety disorder, unspecified; F32.9 Major depressive disorder, single episode, unspecified; E03.9 Hypothyroidism, unspecified; Z86.73 Personal history of transient ischemic attack (TIA), and cerebral infarction without residual deficits; Z79.899 Other long term (current) drug therapy; Z91.010 Allergy to peanuts; Z88.5 Allergy status to narcotic agent; Z88.1 Allergy status to other antibiotic agents
CPT/HCPCS: 99282; 99283

== ENCOUNTER 2021-09-08 10:48 | Emergency (ER) | payer MEDICAID ==
[2021-09-08 11:04] VITALS: BP 107/76; PULSE 95
== END 2021-09-08 12:44 | disposition home or self-care (01) ==
LOC: MW.ED 10:48
DX: S09.90XA Unspecified injury of head, initial encounter (principal); E03.9 Hypothyroidism, unspecified; Z88.1 Allergy status to other antibiotic agents; Z88.5 Allergy status to narcotic agent; Z91.010 Allergy to peanuts; Z79.899 Other long term (current) drug therapy; W01.198A Fall on same level from slipping, tripping and stumbling with subsequent striking against other object, initial encounter
CPT/HCPCS: 70450; 70450-26; 72220; 72220-26; 99283; 99284-25

== ENCOUNTER 2022-01-17 13:59 | Emergency (ER) | payer MEDICAID ==
[2022-01-17] MEDS ORDERED: Sodium Chloride 0.9% 2.5 ML Syringe FLUSH PRN (16:08)
[2022-01-17] MEDS ORDERED: Sodium Chloride 0.9% 1,000 ML IV ONE (16:08)
[2022-01-17] MEDS ORDERED: Sodium Chloride 0.9% 10 ML Syringe FLUSH PRN (16:08)
[2022-01-17] MEDS ORDERED: Ondansetron 4 MG/2 ML SDV IVPUSH ONE (16:08)
[2022-01-17] MEDS ORDERED: Morphine 2 MG/ML SYRINGE IVPUSH ONE ×2 (16:09→20:50)
[2022-01-17] MEDS ORDERED: Pantoprazole 40 MG in Sodium Chloride 0.9% 10 ML IVPUSH ONE (16:09)
[2022-01-17] MEDS ORDERED: Iopamidol 755 MG/ML 500 ML Multipack Bottle IVPUSH STA (17:34)
[2022-01-17 18:05] LABS: POTASSIUM,K 4.8 mmol/L (3.5-5.1)
[2022-01-17] MEDS ORDERED: Ciprofloxacin 500 MG Tab PO ONE (20:48)
[2022-01-17] MEDS ORDERED: metroNIDAZOLE 250 MG Tab PO STA (20:49)
[2022-01-17] MEDS ORDERED: Levofloxacin 500 MG Tab PO ONE (20:55)
[2022-01-17 21:26] VITALS: BP 117/74; PULSE 72
== END 2022-01-17 21:26 | disposition home or self-care (01) ==
LOC: MW.ED 13:59
DX: K52.9 Noninfective gastroenteritis and colitis, unspecified (principal); E03.9 Hypothyroidism, unspecified; F17.210 Nicotine dependence, cigarettes, uncomplicated; Z88.5 Allergy status to narcotic agent; Z88.1 Allergy status to other antibiotic agents; Z91.010 Allergy to peanuts; Z79.899 Other long term (current) drug therapy; Z20.822 Contact with and (suspected) exposure to COVID-19
CPT/HCPCS: 36415; 74177; 80053; 81001; 83605; 83690; 85025; 85610; 87635; 93005; 96361; 96374; 96375; 96376; 99284; A9270; C9113; J2270; J2405; J3490; J7030; Q9967; 93010; U0002

== ENCOUNTER 2024-01-01 11:16 | Emergency (ER) | payer MEDICAID ==
[2024-01-01] MEDS: LORazepam 1 MG Tab PO STA (11:32)
[2024-01-01 12:07] LABS: BASOPHILS ABSOLUTE AUTO 0.03 K/uL (0.00-0.20); BASOPHILS PERCENT AUTO 0.4 % (0.0-1.0); EOSINOPHILS ABSOLUTE AUTO 0.13 K/uL (0.00-0.45); EOSINOPHILS PERCENT AUTO 1.8 % (0.0-6.0); HEMATOCRIT 50.1 % (37.0-47.0); HEMOGLOBIN 17.1 g/dL (12.0-16.0); IMMATURE GRAN ABSOLUTE AUTO 0.01 K/uL (0.00-0.05); IMMATURE GRAN PERCENT AUTO 0.1 % (0.0-0.4); LYMPHOCYTES ABSOLUTE AUTO 2.38 K/uL (1.00-4.80); LYMPHOCYTES PERCENT AUTO 33.6 % (24.0-44.0); MEAN CORPUSCULAR HEMOGLOBIN 30.9 pg (28.0-32.0); MEAN CORPUSCULAR HGB CONC 34.1 g/dL (32.0-36.0); MEAN CORPUSCULAR VOLUME 90.6 fL (83.0-99.0); MEAN PLATELET VOLUME 9.5 fL (9.4-12.3); MONOCYTES ABSOLUTE AUTO 0.38 K/uL (0.00-0.80); MONOCYTES PERCENT AUTO 5.4 % (0.0-8.0); NEUTROPHILS ABSOLUTE AUTO 4.15 K/uL (1.80-7.70); NEUTROPHILS PERCENT AUTO 58.7 % (41.0-71.0); PLATELET COUNT,PLT 303 K/uL (150-400); RED BLOOD CELL COUNT 5.53 M/uL (4.10-5.30); WHITE BLOOD CELL COUNT,WBC 7.08 K/uL (3.9-11.3)
[2024-01-01 12:16] LABS: INR 1.09 (0.86-1.11); PTT,PARTIAL THROMBOPLSTIN TIME 27.3 SEC (23.9-30.7)
[2024-01-01 12:29] LABS: A/G RATIO 0.9 (0.9-1.6); ALBUMIN 3.4 g/dL (3.4-5.0); BILIRUBIN TOTAL 0.6 mg/dL (0.2-1.0); CARBON DIOXIDE,CO2 19.4 mmol/L (21.0-32.0); CREATININE 0.8 mg/dL (0.6-1.0); EST CRCL DRUG DOSING (CG) 77.27 mL/min; POTASSIUM,K 3.5 mmol/L (3.5-5.1); PROTEIN TOTAL,TP 7.1 g/dL (6.4-8.2)
[2024-01-01] MEDS: Sodium Chloride 0.9% 1,000 ML IV STA (13:10)
[2024-01-01] MEDS: Ketorolac 30 MG/ML SDV IVPUSH ONE (13:10)
[2024-01-01] MEDS: Ondansetron 4 MG Tab.DIS PO ONE (13:12)
[2024-01-01] MEDS: oxyCODONE 5 MG Tab PO ONE (13:12)
[2024-01-01 13:34] VITALS: BP 123/90; PULSE 106
== END 2024-01-01 14:38 | disposition home or self-care (01) ==
LOC: MW.ED 11:16
DX: S00.83XA Contusion of other part of head, initial encounter (principal); E03.9 Hypothyroidism, unspecified; Z86.73 Personal history of transient ischemic attack (TIA), and cerebral infarction without residual deficits; Z88.5 Allergy status to narcotic agent; Z88.1 Allergy status to other antibiotic agents; Z88.7 Allergy status to serum and vaccine; Z79.899 Other long term (current) drug therapy; Z91.010 Allergy to peanuts; Z75.8 Other problems related to medical facilities and other health care; Y04.8XXA Assault by other bodily force, initial encounter
CPT/HCPCS: 36415; 70450; 70486; 71046; 72125; 73060; 80053; 83690; 84484; 85025; 85610; 85730; 93005; 96361; 96374; 99285; A9270; J1885; J7030; 93010; 99284

== ENCOUNTER 2024-01-04 14:24 | Emergency (ER) | payer MEDICAID ==
[2024-01-04 15:43] VITALS: BP 123/86; PULSE 64
== END 2024-01-04 15:49 | disposition home or self-care (01) ==
LOC: MW.ED 14:24
DX: F41.8 Other specified anxiety disorders (principal); E03.9 Hypothyroidism, unspecified; F17.210 Nicotine dependence, cigarettes, uncomplicated; Z88.1 Allergy status to other antibiotic agents; Z91.018 Allergy to other foods; Z88.8 Allergy status to other drugs, medicaments and biological substances
CPT/HCPCS: 99283